=== PATIENT | female | born 1970 | race Native Hawaiian/Other Pacific Islander ===

== ENCOUNTER 2021-01-11 15:37 | Outpatient (CLI) | payer BC | END 2021-01-11 19:37 | disposition home or self-care (01) | LOC: MAMMO 15:37 | PROVIDERS: ATTEND Specialist | DX: Z01.818 Encounter for other preprocedural examination (principal); Z12.31 Encounter for screening mammogram for malignant neoplasm of breast ==

== ENCOUNTER 2021-01-17 08:39 | Outpatient (CLI) | payer BC | END 2021-01-17 22:38 | disposition home or self-care (01) | LOC: US 08:39 | PROVIDERS: ATTEND Specialist | DX: R92.8 Other abnormal and inconclusive findings on diagnostic imaging of breast (principal) ==

== ENCOUNTER 2022-11-27 12:14 | Outpatient (CLI) | payer BC | END 2022-11-27 21:37 | disposition home or self-care (01) | LOC: MAMMO 12:14 | PROVIDERS: ATTEND Family Medicine | DX: Z12.31 Encounter for screening mammogram for malignant neoplasm of breast (principal) ==